=== PATIENT | male | born 1970 | race Caucasian/White ===

== ENCOUNTER 2018-10-29 01:01 | Emergency (ER) | payer SELFPAY ==
[~2018-10-29] VITALS: Ht 175.3 cm; Wt 90.7 kg
--- NOTE | 2018-10-29 01:28 | PHYS DOC ---
Past Medical History Past Medical History: CHF, Hypertension, Other Additional Past Medical Histor: drug abuse Alcohol Use: None Drug Use: Methadone Adult General Chief Complaint Chief Complaint: SUBSTANCE ABUSE HPI HPI 48-year-old male with a long history of substance abuse states he did both methadone and methamphetamine tonight. He thinks he had too much methamphetamine. He denies any suicidal or homicidal ideation. He does state that he is interested in inpatient detox and rehabilitation at this time.[] Review of Systems Review of Systems Constitutional: Denies fever or chills [] Eyes: Denies change in visual acuity, redness, or eye pain [] HENT: Denies nasal congestion or sore throat [] Respiratory: Denies cough or shortness of breath [] Cardiovascular: Palpitations[] GI: Denies abdominal pain, nausea, vomiting, bloody stools or diarrhea [] : Denies dysuria or hematuria [] Musculoskeletal: Denies back pain or joint pain [] Integument: Denies rash or skin lesions [] Neurologic: Denies headache, focal weakness or sensory changes [] Endocrine: Denies polyuria or polydipsia [] All other systems were reviewed and found to be within normal limits, except as documented in this note. Current Medications Current Medications Current Medications Medications (Trade) Dose Ordered Sig/Yanna Start Time Stop Time Status Last Admin Dose Admin Lorazepam (Ativan Inj) 2 mg 1X ONCE 10/29/18 01:45 10/29/18 01:47 DC 10/29/18 01:58 2 MG Allergies Allergies Allergies Coded Allergies Type Severity Reaction Last Updated Verified No Known Drug Allergies 10/29/18 No Physical Exam Physical Exam Constitutional: Well developed, well nourished, no acute distress, non-toxic appearance. [] HENT: Normocephalic, atraumatic, bilateral external ears normal, oropharynx moist, no oral exudates, nose normal. [] Eyes: PERRLA, EOMI, conjunctiva normal, no discharge. [] Neck: Normal range of motion, no tenderness, supple, no stridor. [] Cardiovascular:Heart rate regular rhythm, no murmur [] Lungs & Thorax: Bilateral breath sounds clear to auscultation [] Abdomen: Bowel sounds normal, soft, no tenderness, no masses, no pulsatile masses. [] Skin: Warm, dry, no erythema, no rash. [] Back: No tenderness, no CVA tenderness. [] Extremities: No tenderness, no cyanosis, no clubbing, ROM intact, no edema. [] Neurologic: Alert and oriented X 3, normal motor function, normal sensory function, no focal deficits noted. [] Psychologic: Extremely anxious. [] Current Patient Data Vital Signs Vital Signs Date Time Temp Pulse Resp B/P (MAP) Pulse Ox O2 Delivery O2 Flow Rate FiO2 10/29/18 02:06 121 140/84 (102) 10/29/18 01:13 99.2 20 95 Room Air 99.2 EKG EKG [] Radiology/Procedures Radiology/Procedures [] Course & Med Decision Making Course & Med Decision Making Pertinent Labs and Imaging studies reviewed. (See chart for details) [ED course: Evaluation reveals a 48-year-old male with long history of substance abuse. He was given some Ativan to calm him down during his stay in the department. Which had a moderate effect. I do feel he is safe for discharge home at this time.] Dragon Disclaimer Dragon Disclaimer This electronic medical record was generated, in whole or in part, using a voice recognition dictation system. Departure Departure Impression: Primary Impression: Polysubstance abuse Disposition: 01 HOME, SELF-CARE Condition: STABLE Patient Instructions: Substance Abuse-Brief Additional Instructions: As we discussed, I think is a very good idea for you to get to an inpatient detox/rehabilitation facility. Please return to the emergency department with any new or concerning symptoms ASHLEY BURGESS DO Oct 29, 2018 01:28
[2018-10-29 02:06] VITALS: BP 140/84
== END 2018-10-29 02:45 | disposition home or self-care (01) ==
LOC: ER 01:01
DX: F19.10 Other psychoactive substance abuse, uncomplicated (principal); F15.10 Other stimulant abuse, uncomplicated; I11.0 Hypertensive heart disease with heart failure; I50.9 Heart failure, unspecified
CPT/HCPCS: 96372; 99283; J2060

== ENCOUNTER 2020-03-07 11:41 | Emergency (ER) | payer OTHER ==
[~2020-03-07] VITALS: Ht 175.3 cm; Wt 99.2 kg
[2020-03-07] MEDS ORDERED: HYDR-2145 PO (11:58)
[2020-03-07] MEDS ORDERED: LISI-334 PO (11:58)
--- NOTE | 2020-03-07 11:59 | PHYS DOC ---
Past Medical History Past Medical History: CHF, Hypertension, Other Additional Past Medical Histor: drug abuse Smoking Status: Current Every Day Smoker Alcohol Use: None Drug Use: Methadone, Methamphetamine General Adult EDM: Chief Complaint: MEDICATION REFILL HPI: HPI: Patient is a 49 year old male patient with history of CHF and hypertension who presents today requesting a refill of hydrochlorothiazide and lisinopril. Patient states he did not have a primary care doctor and hence ran out of the medication a couple days ago. Patient is complaining of shortness of breath, he states he typically gets shortness of breath when he is not taking his medications. He is refusing any further work-up. Review of Systems: Review of Systems: Constitutional: Denies fever or chills. [] Eyes: Denies change in visual acuity. [] HENT: Denies nasal congestion or sore throat. [] Respiratory: Reports shortness of breath. Denies cough Cardiovascular: Request for blood pressure medicine refill. Denies chest pain or edema. [] GI: Denies abdominal pain, nausea, vomiting, bloody stools or diarrhea. [] : Denies dysuria. [] Musculoskeletal: Denies back pain or joint pain. [] Integument: Denies rash. [] Neurologic: Denies headache, focal weakness or sensory changes. [] Psychiatric: Denies depression or anxiety. [] Heart Score: Risk Factors: Risk Factors: DM, Current or recent (<one month) smoker, HTN, HLP, family history of CAD, obesity. Risk Scores: Score 0 - 3: 2.5% MACE over next 6 weeks - Discharge Home Score 4 - 6: 20.3% MACE over next 6 weeks - Admit for Clinical Observation Score 7 - 10: 72.7% MACE over next 6 weeks - Early Invasive Strategies Allergies: Allergies: Allergies Coded Allergies Type Severity Reaction Last Updated Verified No Known Drug Allergies 03/07/20 No Physical Exam: PE: Constitutional: Well developed, well nourished, no acute distress, non-toxic appearance. [] HENT: Normocephalic, atraumatic, bilateral external ears normal, oropharynx moist, no oral exudates, nose normal. [] Eyes: PERRLA, EOMI, conjunctiva normal, no discharge. [] Neck: Normal range of motion, no tenderness, supple, no stridor. [] Cardiovascular:Heart rate regular rhythm, no murmur [] Lungs & Thorax: Bilateral breath sounds clear to auscultation [] Abdomen: Bowel sounds normal, soft, no tenderness, no masses, no pulsatile masses. [] Skin: Warm, dry, no erythema, no rash. [] Back: No tenderness, no CVA tenderness. [] Extremities: No tenderness, no cyanosis, no clubbing, ROM intact, no edema. [] Neurologic: Alert and oriented X 3, normal motor function, normal sensory function, no focal deficits noted. [] Psychologic: Affect normal, judgement normal, mood normal. [] EKG: EKG: [] Radiology/Procedures: Radiology/Procedures: [] Course & Med Decision Making: Course & Med Decision Making Pertinent Labs and Imaging studies reviewed. (See chart for details) This is a 49-year-old male patient with history of CHF and hypertension presenting today requesting blood pressure medication refill. He is out of lisinopril and HCTZ. Is complaining of shortness of breath and refuses to be worked up. Current vitals in the ED blood pressure 186/135 with a heart rate of 125. Patient states despite his typical vitals when he has not taken his medicine for a while. Again he is refusing any further work-up. I gave him prescription for lisinopril and HCTZ and requested he follows up with a primary care doctor soon as possible. We did give him a list of primary care doctors as well as clinic list. Gabriele Disclaimer: Gabriele Disclaimer: This electronic medical record was generated, in whole or in part, using a voice recognition dictation system. Departure Departure Impression: Primary Impression: Medication refill Additional Impressions: Hypertension, accelerated Tachycardia Disposition: 01 DC HOME SELF CARE/HOMELESS Condition: STABLE Referrals: NO PCP (PCP) Follow-up with your primary care doctor from the list provided as soon as you can Patient Instructions: Hypertension Additional Instructions: You were evaluated in the emergency room for high blood pressure. Please contact one of the doctors from the list provided and follow-up as soon as possible Scripts Lisinopril (LISINOPRIL) 20 Mg Tablet 1 TAB PO DAILY, #30 TAB Prov: MUTUNGA,MIKE LEARNING AND DEVELOPMENT ASSISTANT 03/07/20 Hydrochlorothiazide (HYDROCHLOROTHIAZIDE TABLET ) 25 Mg Tablet 25 MG PO DAILY for DIURETIC, #30 TAB 0 Refills Prov: MIKE MAHAJAN APRN 03/07/20 MIKE MAHAJAN APRN Mar 07, 2020 11:58
[2020-03-07 12:08] VITALS: BP 183/111
== END 2020-03-07 12:08 | disposition home or self-care (01) ==
LOC: ER 11:41
DX: I11.0 Hypertensive heart disease with heart failure (principal); I50.9 Heart failure, unspecified; R00.0 Tachycardia, unspecified; F17.200 Nicotine dependence, unspecified, uncomplicated
CPT/HCPCS: 99281; 99283

== ENCOUNTER 2020-06-03 14:41 | Emergency (ER) | payer OTHER ==
[~2020-06-03] VITALS: Ht 175.3 cm; Wt 95.0 kg
[~2020-06-03 14:41] MED LIST: HYDR-2145 PO; LISI20TA18 PO
[2020-06-03 15:58] LABS: BASO # 0.1 x10^3/uL (0.0-0.2); BASO % 1 % (0-3); EOS # 0.2 x10^3/uL (0.0-0.7); EOS % 3 % (0-3); HEMATOCRIT 52.1 % (39.0-53.0); HEMOGLOBIN 17.4 g/dL (13.0-17.5); LYMPH # 1.5 x10^3/uL (1.0-4.8); LYMPH % 18 % (24-48); MEAN CORPUSCULAR HEMOGLOBIN 32 pg (25-35); MEAN CORPUSCULAR HGB CONC 34 g/dL (31-37); MEAN CORPUSCULAR VOLUME 94 fL (79-100); MONO # 0.9 x10^3/uL (0.0-1.1); MONO % 11 % (0-9); NEUT # 5.4 x10^3/uL (1.8-7.7); NEUT % 67 % (31-73); PLATELET COUNT 279 x10^3/uL (140-400); RED BLOOD COUNT 5.54 x10^6/uL (4.30-5.70); RED CELL DISTRIBUTION WIDTH 13.5 % (11.5-14.5)
[2020-06-03 16:00] LABS: BILIRUBIN,URINE NEGATIVE (NEG); CLARITY,URINE CLEAR; COLOR,URINE YELLOW; NITRITE,URINE NEGATIVE (NEG); PH,URINE 5.5 (<5.0-8.0); PROTEIN,URINE 30 mg/dL (NEG-TRACE)
[2020-06-03 16:06] LABS: BACTERIA,URINE 0 /HPF (0-FEW); RBC,URINE 0 /HPF (0-2); WBC,URINE 0 /HPF (0-4)
[2020-06-03 16:08] LABS: CREATININE 1.2 mg/dL (0.7-1.3); GFR 63.6; POTASSIUM 4.2 mmol/L (3.5-5.1)
[2020-06-03 16:16] LABS: ALBUMIN 3.6 g/dL (3.4-5.0); TOTAL BILIRUBIN 0.4 mg/dL (0.2-1.0); TOTAL PROTEIN 7.3 g/dL (6.4-8.2)
[2020-06-03] MEDS: IOHEXOL 300 MG/ML 100ML VIAL. IV ONE (16:38)
[2020-06-03] MEDS: CONTRAST GIVEN. MC PRN (16:41)
[2020-06-03 16:52] VITALS: BP 149/83
--- NOTE | 2020-06-03 17:02 | RAD ---
INDICATION: Reason: rlq abdominal pain radiating into right groin, inguinal area / Spl. Instructions : [id number] [phone] / History: . COMPARISON: None. TECHNIQUE: Axial CT images obtained through the abdomen and pelvis with contrast. One or more of the following individualized dose reduction techniques were utilized for this examinat ion: 1. Automated exposure control; 2. Adjustment of the mA and/or kV according to patient size; 3 . Use of iterative reconstruction technique. FINDINGS: Abdominal aorta is not aneurysmal. Moderate calcific atherosclerosis. No intrahepatic bile duct dilation. No peripancreatic fluid collection. Mild heterogeneity of the spleen prominent lymph node in the portacaval region measuring approximatel y 12 mm short axis. No hydronephrosis. Urinary bladder is partially distended. Small fat-containing umbilical hernia. Retrocecal appendix measures approximately 6-7 mm without definitive adjacent inflammatory changes at this time. There is some motion artifact suspected at the distal appendix. No dilated loops of bowel to suggest obstruction. Degenerative changes the spine with multilevel central canal and neural foraminal stenosis. IMPRESSION: * No evidence of bowel obstruction or hydronephrosis. * The appendix is mildly dilated through a portion of its course. There is however not definitive ad jacent inflammatory changes to the fat therefore this does not fulfill all of the CT criteria for acu te appendicitis. Some patients can have a mildly dilated appendix at baseline but would still correla te with symptoms and lab markers given the presence of this mild dilation. Electronically signed by: Aung Frausto MD (06/03/2020 4:59 PM) [id number]
--- NOTE | 2020-06-03 17:45 | PHYS DOC ---
Past Medical History Past Medical History: CHF, Hypertension, Other Additional Past Medical Histor: drug abuse Past Surgical History: Other Additional Past Surgical Histo: cardiac cath Smoking Status: Current Every Day Smoker Alcohol Use: None Drug Use: Methadone, Methamphetamine General Adult EDM: Chief Complaint: GROIN PAIN HPI: HPI: Patient is a 50 year old male who presented to ER for evaluation of left inguinal pain, left lower abdominal pain for 2 weeks. Patient says sometimes the pain radiates into his right testicle. Patient denies any testicular pain or swelling. Patient denies any penile discharge, denies any rash or lesion. Patient said it seems to be worse whenever he get up and walk around. Patient said a few years ago he had the same problem and he went to [facility], was put on some antibiotic and he got better. Patient denies any nausea vomiting, no fever, no cough, no trouble breathing. Patient denies any chest pain. Patient denies any numbness weakness in his lower extremity. Review of Systems: Review of Systems: Constitutional: Denies fever or chills. [] Eyes: Denies change in visual acuity. [] HENT: Denies nasal congestion or sore throat. [] Respiratory: Denies cough or shortness of breath. [] Cardiovascular: Denies chest pain or edema. [] GI: Positive for right abdominal pain, no nausea vomiting, no diarrhea. : Denies dysuria. [] Musculoskeletal: Denies back pain or joint pain. [] Integument: Denies rash. [] Neurologic: Denies headache, focal weakness or sensory changes. [] Endocrine: Denies polyuria or polydipsia. [] Lymphatic: Denies swollen glands. [] Psychiatric: Denies depression or anxiety. [] Heart Score: C/O Chest Pain: N/A Risk Factors: Risk Factors: DM, Current or recent (<one month) smoker, HTN, HLP, family history of CAD, obesity. Risk Scores: Score 0 - 3: 2.5% MACE over next 6 weeks - Discharge Home Score 4 - 6: 20.3% MACE over next 6 weeks - Admit for Clinical Observation Score 7 - 10: 72.7% MACE over next 6 weeks - Early Invasive Strategies Current Medications: Current Medications Medications (Trade) Dose Ordered Sig/Yanna Start Time Stop Time Status Last Admin Dose Admin Info (CONTRAST GIVEN -- Rx MONITORING) 1 each PRN DAILY PRN 4/14/21 16:45 06/05/20 16:44 06/03/20 16:41 1 EACH Iohexol (Omnipaque 300 Mg/ml) 75 ml 1X ONCE 06/03/20 16:30 06/03/20 16:32 DC 06/03/20 16:38 75 ML Allergies: Allergies: Allergies Coded Allergies Type Severity Reaction Last Updated Verified No Known Drug Allergies 03/07/20 No Physical Exam: PE: Constitutional: Well developed, well nourished, no acute distress, non-toxic appearance. [] HENT: Normocephalic, atraumatic, bilateral external ears normal, oropharynx moist, no oral exudates, nose normal. [] Eyes: PERRLA, EOMI, conjunctiva normal, no discharge. [] Neck: Normal range of motion, no tenderness, supple, no stridor. [] Cardiovascular:Heart rate regular rhythm, no murmur [] Lungs & Thorax: Bilateral breath sounds clear to auscultation [] Abdomen: Bowel sounds normal, soft, There is tenderness in right inguinal area, no hernia, no mass, no scrotal pain or swelling, no rash in perigenital area, no crepitus. , no masses, no pulsatile masses. [] Skin: Warm, dry, no erythema, no rash. [] Back: No tenderness, no CVA tenderness. [] Extremities: No tenderness, no cyanosis, no clubbing, ROM intact, no edema. [] Neurologic: Alert and oriented X 3, normal motor function, normal sensory function, no focal deficits noted. [] Psychologic: Affect normal, judgement normal, mood normal. [] Current Patient Data: Labs: Laboratory Tests Test 06/03/20 15:52 White Blood Count 8.0 x10^3/uL (4.0-11.0) Red Blood Count 5.54 x10^6/uL (4.30-5.70) Hemoglobin 17.4 g/dL (13.0-17.5) Hematocrit 52.1 % (39.0-53.0) Mean Corpuscular Volume 94 fL (79-100) Mean Corpuscular Hemoglobin 32 pg (25-35) Mean Corpuscular Hemoglobin Concent 34 g/dL (31-37) Red Cell Distribution Width 13.5 % (11.5-14.5) Platelet Count 279 x10^3/uL (140-400) Neutrophils (%) (Auto) 67 % (31-73) Lymphocytes (%) (Auto) 18 % (24-48) L Monocytes (%) (Auto) 11 % (0-9) H Eosinophils (%) (Auto) 3 % (0-3) Basophils (%) (Auto) 1 % (0-3) Neutrophils # (Auto) 5.4 x10^3/uL (1.8-7.7) Lymphocytes # (Auto) 1.5 x10^3/uL (1.0-4.8) Monocytes # (Auto) 0.9 x10^3/uL (0.0-1.1) Eosinophils # (Auto) 0.2 x10^3/uL (0.0-0.7) Basophils # (Auto) 0.1 x10^3/uL (0.0-0.2) Urine Collection Type Unknown Urine Color Yellow Urine Clarity Clear Urine pH 5.5 (<5.0-8.0) Urine Specific [place] 1.025 (1.000-1.030) Urine Protein 30 mg/dL (NEG-TRACE) Urine Glucose (UA) Negative mg/dL (NEG) Urine Ketones (Stick) Negative mg/dL (NEG) Urine Blood Negative (NEG) Urine Nitrite Negative (NEG) Urine Bilirubin Negative (NEG) Urine Urobilinogen Dipstick 1.0 mg/dL (0.2 mg/dL) Urine Leukocyte Esterase Negative (NEG) Urine RBC 0 /HPF (0-2) Urine WBC 0 /HPF (0-4) Urine Squamous Epithelial Cells Occ /LPF Urine Bacteria 0 /HPF (0-FEW) Sodium Level 141 mmol/L (136-145) Potassium Level 4.2 mmol/L (3.5-5.1) Chloride Level 103 mmol/L (98-107) Carbon Dioxide Level 32 mmol/L (21-32) Anion Gap 6 (6-14) Blood Urea Nitrogen 27 mg/dL (8-26) H Creatinine 1.2 mg/dL (0.7-1.3) Estimated GFR (Cockcroft-Gault) 63.6 BUN/Creatinine Ratio 23 (6-20) H Glucose Level 110 mg/dL (70-99) H Calcium Level 9.0 mg/dL (8.5-10.1) Total Bilirubin 0.4 mg/dL (0.2-1.0) Aspartate Amino Transferase (AST) 29 U/L (15-37) Alanine Aminotransferase (ALT) 41 U/L (16-63) Alkaline Phosphatase 93 U/L (46-116) Total Protein 7.3 g/dL (6.4-8.2) Albumin 3.6 g/dL (3.4-5.0) Albumin/Globulin Ratio 1.0 (1.0-1.7) Lipase 105 U/L (73-393) Laboratory Tests 06/03/20 15:52 Laboratory Tests 06/03/20 15:52 Vital Signs: Vital Signs Date Time Temp Pulse Resp B/P (MAP) Pulse Ox O2 Delivery O2 Flow Rate FiO2 06/03/20 14:57 97.8 116 18 145/91 (109) 100 Room Air 97.8 EKG: EKG: [] Radiology/Procedures: Radiology/Procedures: [] Course & Med Decision Making: Course & Med Decision Making Pertinent Labs and Imaging studies reviewed. (See chart for details) Patient is a 50-year-old male who presented to ER due to right side abdominal pain right inguinal pain. CT scan abdomen pelvic did not show any acute proble m, his lab work came back normal. At the time of discharge went discussed lab results and CT scan results with patient, patient would like to be treated for possible STD. Gabriele Disclaimer: Gabriele Disclaimer: This electronic medical record was generated, in whole or in part, using a voice recognition dictation system. Departure Departure Impression: Primary Impression: Groin pain Additional Impression: Abdominal pain Disposition: HOME / SELF CARE / HOMELESS Condition: STABLE Referrals: NO PCP (PCP) Please follow up with [facility] this week. [address], [address] [place] [address] Phone number: [phone] Patient Instructions: Abdominal Pain, Groin Site Care Additional Instructions: Thank you for visiting our Emergency Department. We appreciate you trusting us with your care. If any additional problems come up don't hesitate to return to visit us. Please follow up with your primary care provider so they can plan additional care if needed and know about the problem that you had. If symptoms worsen come back to the Emergency Department. Any concerning symptoms that start such as chest pain, shortness of air, weakness or numbness on one side of the body, running high fevers or any other concerning symptoms return to the ER. Scripts Doxycycline Hyclate (DOXYCYCLINE HYCLATE) 100 Mg Capsule 1 CAP PO BID for 14 Days, #28 CAP Prov: COCO BANEGAS DO 06/03/20 COCO BANEGAS DO Jun 03, 2020 17:45
[2020-06-03] MEDS ORDERED: DOXY100C2 PO (17:48)
[2020-06-03] MEDS: cefTRIAXone IV Push 1 GM VIAL. IVP ONE (17:54)
== END 2020-06-03 17:57 | disposition home or self-care (01) ==
LOC: ER 14:41
DX: R10.32 Left lower quadrant pain (principal); N50.811 Right testicular pain; I11.0 Hypertensive heart disease with heart failure; I50.9 Heart failure, unspecified; F17.200 Nicotine dependence, unspecified, uncomplicated
CPT/HCPCS: 36415; 74177; 80053; 81001; 83690; 85025; 96374; 99285; J0696; Q9967